=== PATIENT | male | born 1960 | race Hispanic/Latino ===

== ENCOUNTER 2019-08-04 10:29 | Inpatient (IN) | payer OTHER, SELFPAY ==
[~2019-08-04] VITALS: Ht 172.7 cm; Wt 85.7 kg
[2019-08-04] MEDS ORDERED: ACETAMINOPHEN EXTRA STRENGTH 500 MG TABLET ONE (10:46)
[2019-08-04] MEDS ORDERED: ALBUTEROL INHALER 90MCG/INH IH ONE (10:46)
[2019-08-04 11:46] LABS: BASOPHILS % (AUTO) 0.4 % (0.0-5.0); EOSINOPHILS % (AUTO) 0.8 % (0.0-8.0); HEMATOCRIT 39.9 % (42-54); LYMPHOCYTES % (AUTO) 13.6 % (21.0-51.0); MEAN CORPUSCULAR HEMOGLOBIN 29.3 pg (27.0-33.0); MEAN CORPUSCULAR HGB CONC 33.8 g/dL (32.0-36.0); MEAN CORPUSCULAR VOLUME 86.7 fL (79-99); MONOCYTES % (AUTO) 12.6 % (3.0-13.0); PLATELET COUNT (AUTO) 290 K/uL (130-400); RED CELL DISTRIBUTION WIDTH 13.3 % (11.0-15.5); WHITE BLOOD COUNT (AUTO) 10.6 K/uL (4.8-10.8)
[2019-08-04 11:47] LABS: POTASSIUM 3.8 mmol/L (3.5-5.1)
[2019-08-04] MEDS ORDERED: AZITHROMYCIN 250 MG TABLET PO ONE (11:55)
[2019-08-04 12:27] LABS: INR 0.94 (0.85-1.15); PARTIAL THROMBOPLASTIN TIME 27.1 SEC (26.3-35.5); PROTHROMBIN TIME 10.2 SEC (9.6-11.6)
[2019-08-04 12:30] LABS: CRP QUANTITATIVE 227.1 mg/L (0.00-9.0)
[2019-08-04 12:31] LABS: ALBUMIN 2.6 g/dL (3.5-5.0); BILIRUBIN,TOTAL 1.4 mg/dL (0.2-1.0); TOTAL PROTEIN, SERUM 6.6 g/dL (6.0-8.3)
[2019-08-04 12:36] LABS: APPEARANCE,URINE Clear (CLEAR); BILIRUBIN,URINE Small (NEGATIVE); COLOR,URINE Dark Yellow (YELLOW); GLUCOSE, URINE (UA) Negative (NEGATIVE); KETONES,URINE >=80 mg/dL (NEGATIVE); LEUKOCYTE ESTERASE ,URINE Trace (NEGATIVE); NITRATE,URINE Negative (NEGATIVE); OCCULT BLOOD,URINE Negative (NEGATIVE); PROTEIN,URINE POS 2+ mg/dL (NEGATIVE)
[2019-08-04 12:37] LABS: FERRITIN 3245 ng/mL (30-400)
[2019-08-04 14:14] LABS: RBC,URINE 0-1 /HPF (0-1)
[2019-08-04 14:15] LABS: BACTERIA,URINE Few /HPF (None Seen); WBC,URINE 0-1 /HPF (0-1)
[2019-08-04] MEDS ORDERED: ACETAMINOPHEN 325 MG TAB PO PRN ×2 (14:15)
[2019-08-04] MEDS ORDERED: ONDANSETRON HCL 4 MG/2 ML VIAL IVP PRN (14:15)
[2019-08-04] MEDS ORDERED: METHYLPREDNISOLONE SOD SUCC 40MG/ML 1ML ONE (16:37)
[2019-08-04] MEDS ORDERED: CEFTRIAXONE SODIUM 1 GM ONE (16:38)
[2019-08-05] MEDS ORDERED: METHYLPREDNISOLONE SOD SUCC 40MG/ML 1ML ONE ×2 (01:32→16:48)
[2019-08-05 05:23] LABS: BASOPHILS % (AUTO) 0.3 % (0.0-5.0); HEMATOCRIT 40.5 % (42-54); LYMPHOCYTES % (AUTO) 14.7 % (21.0-51.0); MEAN CORPUSCULAR HEMOGLOBIN 28.9 pg (27.0-33.0); MEAN CORPUSCULAR HGB CONC 33.6 g/dL (32.0-36.0); MEAN CORPUSCULAR VOLUME 86.2 fL (79-99); MONOCYTES % (AUTO) 5.4 % (3.0-13.0); NEUTROPHILS % (AUTO) 77.5 % (40.0-77.0); PLATELET COUNT (AUTO) 334 K/uL (130-400); RED CELL DISTRIBUTION WIDTH 13.2 % (11.0-15.5); WHITE BLOOD COUNT (AUTO) 6.3 K/uL (4.8-10.8)
[2019-08-05 05:39] LABS: CREATININE 0.8 mg/dL (0.5-1.5); POTASSIUM 4.4 mmol/L (3.5-5.1)
[2019-08-05] MEDS ORDERED: METHYLPREDNISOLONE SOD SUCC 125MG/2ML VIAL ONE (08:48)
[2019-08-05] MEDS ORDERED: ENOXAPARIN SODIUM 40 MG/0.4 ML SYRINGE SQ ONE (08:48)
[2019-08-05] MEDS ORDERED: ACETAMINOPHEN 325 MG TAB ONE (10:58)
[2019-08-05] MEDS ORDERED: AZITHROMYCIN 500MG+NS 250ML 250 ML IV ONE (12:39)
[2019-08-05] MEDS ORDERED: CEFTRIAXONE SODIUM 1 GM ONE (16:33)
[2019-08-05] MEDS ORDERED: SODIUM CHLORIDE 0.9% 100 ML IV ONE (16:33)
--- NOTE | 2019-08-05 16:46 | NUR ---
DCP: HOME SW spoke to pt's Jenn Nguyen [phone]. 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 reports pt has been very sick since last week and brother Saurabh Nguyen took pt to see in [place]. Pt as given 2 shots and meds. 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 Pt refused to go to Er and insisted on driving back to [place]. states pt got worse on trip back and was brought straight to ER. states that many family members have already tested positive for covid and she knows that is what pt has and has given to other family members. was tested today and results are pending. Prior to admission pt was independent, working, driving, no DME or in home care services. No PCP. Plan is home with family Addendum: 08/05/19 at 1652 by BECCA NOLAN Amended: Links added.
[2019-08-06] MEDS ORDERED: METHYLPREDNISOLONE SOD SUCC 40MG/ML 1ML ONE ×3 (06:14→22:19)
[2019-08-06 06:56] LABS: BASOPHILS % (AUTO) 0.1 % (0.0-5.0); HEMATOCRIT 40.5 % (42-54); LYMPHOCYTES % (AUTO) 11.2 % (21.0-51.0); MEAN CORPUSCULAR HEMOGLOBIN 28.7 pg (27.0-33.0); MEAN CORPUSCULAR HGB CONC 33.3 g/dL (32.0-36.0); MONOCYTES % (AUTO) 8.8 % (3.0-13.0); NUCLEATED RED BLOOD CELLS 0.1 % (0.0-0.19); PLATELET COUNT (AUTO) 402 K/uL (130-400); RED BLOOD CELL COUNT(AUTO) 4.71 MIL/uL (4.50-6.20); RED CELL DISTRIBUTION WIDTH 12.9 % (11.0-15.5); WHITE BLOOD COUNT (AUTO) 15.1 K/uL (4.8-10.8)
[2019-08-06 07:24] LABS: CREATININE 0.9 mg/dL (0.5-1.5); CRP QUANTITATIVE 93.9 mg/L (0.00-9.0); POTASSIUM 4.4 mmol/L (3.5-5.1)
[2019-08-06] MEDS ORDERED: ENOXAPARIN SODIUM 40 MG/0.4 ML SYRINGE SQ ONE (09:10)
[2019-08-06] MEDS ORDERED: AZITHROMYCIN 500MG+NS 250ML 250 ML IV ONE (11:13)
[2019-08-06] MEDS ORDERED: CEFTRIAXONE SODIUM 1 GM ONE (17:19)
[2019-08-07 05:12] LABS: BASOPHILS % (AUTO) 0.2 % (0.0-5.0); EOSINOPHILS % (AUTO) 0.1 % (0.0-8.0); LYMPHOCYTES % (AUTO) 12.4 % (21.0-51.0); MEAN CORPUSCULAR HEMOGLOBIN 29.4 pg (27.0-33.0); MEAN CORPUSCULAR HGB CONC 34.1 g/dL (32.0-36.0); MEAN CORPUSCULAR VOLUME 86.3 fL (79-99); MONOCYTES % (AUTO) 8.9 % (3.0-13.0); NEUTROPHILS % (AUTO) 77.8 % (40.0-77.0); PLATELET COUNT (AUTO) 422 K/uL (130-400); RED BLOOD CELL COUNT(AUTO) 4.52 MIL/uL (4.50-6.20); RED CELL DISTRIBUTION WIDTH 12.8 % (11.0-15.5); WHITE BLOOD COUNT (AUTO) 13.1 K/uL (4.8-10.8)
[2019-08-07 05:47] LABS: CREATININE 0.9 mg/dL (0.5-1.5); POTASSIUM 4.3 mmol/L (3.5-5.1)
[2019-08-07 05:54] LABS: CRP QUANTITATIVE 44.2 mg/L (0.00-9.0)
[2019-08-07] MEDS: ENOXAPARIN SODIUM 40 MG/0.4 ML SYRINGE SQ SCH (09:00)
[2019-08-07] MEDS ORDERED: AZITHROMYCIN 250 MG TABLET PO ONE (11:04)
[2019-08-07] MEDS ORDERED: ENOXAPARIN SODIUM 40 MG/0.4 ML SYRINGE SQ ONE (11:04)
[2019-08-07] MEDS ORDERED: ACETAMINOPHEN 325 MG TAB ONE (11:16)
[2019-08-07] MEDS: AZITHROMYCIN 500MG+NS 250ML 250 ML IV SCH (14:15)
[2019-08-07] MEDS: CEFTRIAXONE SODIUM 1 GM IVP SCH (15:12)
[2019-08-07] MEDS: METHYLPREDNISOLONE SOD SUCC 40MG/ML 1ML IVP SCH ×2 (15:13→20:41)
[2019-08-07 16:49] VITALS: BP 171/62
[2019-08-07 18:00] VITALS: BP 138/61
[2019-08-07 19:48] VITALS: BP 106/75
[2019-08-07 23:02] VITALS: BP 98/65
[2019-08-08 03:26] VITALS: BP 93/52
[2019-08-08] MEDS: METHYLPREDNISOLONE SOD SUCC 40MG/ML 1ML IVP SCH ×3 (05:03→20:12)
[2019-08-08 06:39] LABS: BASOPHILS % (AUTO) 0.1 % (0.0-5.0); HEMATOCRIT 41.5 % (42-54); LYMPHOCYTES % (AUTO) 13.2 % (21.0-51.0); MEAN CORPUSCULAR HEMOGLOBIN 29.1 pg (27.0-33.0); MEAN CORPUSCULAR VOLUME 85.7 fL (79-99); NEUTROPHILS % (AUTO) 79.7 % (40.0-77.0); PLATELET COUNT (AUTO) 448 K/uL (130-400); RED BLOOD CELL COUNT(AUTO) 4.84 MIL/uL (4.50-6.20); RED CELL DISTRIBUTION WIDTH 12.7 % (11.0-15.5)
[2019-08-08 07:02] LABS: CREATININE 0.7 mg/dL (0.5-1.5); CRP QUANTITATIVE 41.9 mg/L (0.00-9.0); POTASSIUM 4.4 mmol/L (3.5-5.1)
[2019-08-08 08:00] VITALS: BP 112/87
[2019-08-08] MEDS: ENOXAPARIN SODIUM 40 MG/0.4 ML SYRINGE SQ SCH (08:05)
[2019-08-08 12:00] VITALS: BP_SYST 105; BP_SYST 126; BP_DIAS 54; BP_DIAS 68
--- NOTE | 2019-08-08 12:00 | NUR ---
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 AFTER 6 MINUTES OF WALKING IN THE ROOM ON ROOM AIR, O2 SAT WAS CHECKED: 90%. PLACED O2 BACK AT 2L. EXTENSION CORD STILL IN USE.
[2019-08-08] MEDS: CEFTRIAXONE SODIUM 1 GM IVP SCH (12:41)
[2019-08-08] MEDS: AZITHROMYCIN 500MG+NS 250ML 250 ML IV SCH (12:41)
[2019-08-08 16:00] VITALS: BP 109/50
[2019-08-08] MEDS ORDERED: REMDESIVIR (INVESTIGATIONAL) 200 MG in SODIUM CHLORIDE 0.9% 250 ML IV ONE (16:30)
[2019-08-08 19:32] VITALS: BP 99/63
[2019-08-08 23:02] VITALS: BP 106/71
[2019-08-09 03:02] VITALS: BP 99/68
[2019-08-09] MEDS: METHYLPREDNISOLONE SOD SUCC 40MG/ML 1ML IVP SCH (05:46)
[2019-08-09 05:58] LABS: BASOPHILS % (AUTO) 0.1 % (0.0-5.0); HEMATOCRIT 42.8 % (42-54); MEAN CORPUSCULAR HEMOGLOBIN 28.8 pg (27.0-33.0); MEAN CORPUSCULAR HGB CONC 33.4 g/dL (32.0-36.0); MEAN CORPUSCULAR VOLUME 86.1 fL (79-99); NEUTROPHILS % (AUTO) 78.9 % (40.0-77.0); PLATELET COUNT (AUTO) 482 K/uL (130-400); RED BLOOD CELL COUNT(AUTO) 4.97 MIL/uL (4.50-6.20); RED CELL DISTRIBUTION WIDTH 12.7 % (11.0-15.5); WHITE BLOOD COUNT (AUTO) 10.6 K/uL (4.8-10.8)
[2019-08-09 06:12] LABS: CREATININE 0.8 mg/dL (0.5-1.5); POTASSIUM 4.6 mmol/L (3.5-5.1)
[2019-08-09 07:00] VITALS: BP 110/67
[2019-08-09 11:00] VITALS: BP 107/65
[2019-08-09] MEDS: GUAIFENESIN 600 MG TABLET.ER PO SCH ×2 (11:17→20:20)
[2019-08-09] MEDS: ENOXAPARIN SODIUM 40 MG/0.4 ML SYRINGE SQ SCH (11:18)
[2019-08-09] MEDS: FLUTICASONE PROPIONATE 50MCG/SPRAY 16 GM BOTTLE EN SCH (13:14)
[2019-08-09] MEDS: AZITHROMYCIN 500MG+NS 250ML 250 ML IV SCH (13:15)
[2019-08-09] MEDS: CEFTRIAXONE SODIUM 1 GM IVP SCH (13:15)
[2019-08-09] MEDS: DEXAMETHASONE 4 MG TAB PO SCH (13:15)
[2019-08-09 16:00] VITALS: BP 96/57
[2019-08-09] MEDS ORDERED: REMDESIVIR (INVESTIGATIONAL) 100 MG in SODIUM CHLORIDE 0.9% 250 ML IV SCH (16:30)
[2019-08-09 19:33] VITALS: BP 116/71
[2019-08-09] MEDS ORDERED: METHYLPREDNISOLONE SOD SUCC 40MG/ML 1ML IVP SCH (21:00)
[2019-08-10 00:55] VITALS: BP 113/75
[2019-08-10 04:49] LABS: BASOPHILS % (AUTO) 0.1 % (0.0-5.0); HEMATOCRIT 41.6 % (42-54); LYMPHOCYTES % (AUTO) 13.7 % (21.0-51.0); MEAN CORPUSCULAR HEMOGLOBIN 29.1 pg (27.0-33.0); MEAN CORPUSCULAR HGB CONC 33.4 g/dL (32.0-36.0); MONOCYTES % (AUTO) 7.3 % (3.0-13.0); NEUTROPHILS % (AUTO) 78.1 % (40.0-77.0); PLATELET COUNT (AUTO) 503 K/uL (130-400); RED BLOOD CELL COUNT(AUTO) 4.78 MIL/uL (4.50-6.20); RED CELL DISTRIBUTION WIDTH 12.7 % (11.0-15.5); WHITE BLOOD COUNT (AUTO) 11.5 K/uL (4.8-10.8)
[2019-08-10 05:02] LABS: CREATININE 0.9 mg/dL (0.5-1.5); CRP QUANTITATIVE 16.3 mg/L (0.00-9.0); POTASSIUM 4.3 mmol/L (3.5-5.1)
[2019-08-10] MEDS: DEXAMETHASONE 4 MG TAB PO SCH (07:42)
[2019-08-10] MEDS: GUAIFENESIN 600 MG TABLET.ER PO SCH (07:43)
[2019-08-10] MEDS: FLUTICASONE PROPIONATE 50MCG/SPRAY 16 GM BOTTLE EN SCH (07:44)
[2019-08-10] MEDS: ENOXAPARIN SODIUM 40 MG/0.4 ML SYRINGE SQ SCH (07:44)
[2019-08-10 08:00] VITALS: BP 105/55
--- NOTE | 2019-08-10 08:00 | NUR ---
ASSESSMENT PT IS AAOX3 DENIES CP DENIES NV DENIES SOB WHILE AT REST, BREATHING PATTERN IS EVEN AND UNLABORED, ON O2 VIA NC. AM MEDS GIVEN, CALL LIGHT WITHIN REACH.
[2019-08-10] MEDS ORDERED: DEXA6TAB PO (09:38)
--- NOTE | 2019-08-10 13:32 | NUR ---
DISCHARGE INSTRUCTIONS GIVEN TO PATIENT AGREES TO TAKE MEDS ORDERED AGREES TO FOLLOW UP WITH PRIMARY MD. AGREES TO FOLLOW [facility] INSTRUCTIONS. ALL QUESTIONS ANSWERED, PIV REMOVED CATH TIP INTACT, TELE PACK REMOVED. ALL QUESTIONS ANSWERED, AWAITING RIDE.
== END 2019-08-10 15:31 | disposition home or self-care (01) | DRG 177 ==
LOC: EDH 10:29 → EDHIP 10:30 → 2AH 08-07 13:40
PROVIDERS: ADMIT Hospitalist; ATTEND Hospitalist
DX: U07.1 COVID-19 (principal); J96.01 Acute respiratory failure with hypoxia; J12.89 Other viral pneumonia; Z83.3 Family history of diabetes mellitus; Z82.5 Family history of asthma and other chronic lower respiratory diseases; Z82.0 Family history of epilepsy and other diseases of the nervous system; Z82.49 Family history of ischemic heart disease and other diseases of the circulatory system
CPT/HCPCS: 36415; 71045; 80048; 80053; 81001; 82550; 82728; 82948; 83605; 83615; 84145; 84484; 85025; 85378; 85610; 85730; 86140; 86850; 86900; 86901; 93005; 99291; G0378; J0456; J0696; J1650; J2920; J2930; J7050; J8540; U0003